=== PATIENT | female | born 1945 | race Caucasian/White ===

== ENCOUNTER → 2016-12-13 | Outpatient (CLI) | payer MEDICARE ==
[2016-12-13 12:13] LABS: LYMPH # 1.7 K/mm3 (0.7-4.5); LYMPH % 28.6 % (10-50.0)
[2016-12-13 12:41] LABS: HEMOGLOBIN 15.3 g/dL (12.2-16.2)
[2016-12-13 12:49] LABS: BUN 22 mg/dL (7-18)
[2016-12-13 12:59] LABS: GFR (ESTIMATED) 82 ML/MIN (59-)
[2016-12-14 19:28] LABS: Vitamin D, 25-Hydroxy 34.2 ng/mL (30.0-100.0)
== END ==
LOC: LAB 11:11
PROVIDERS: Physician Assistant
DX: I10 Essential (primary) hypertension (principal); E55.9 Vitamin D deficiency, unspecified; Z13.29 Encounter for screening for other suspected endocrine disorder; Z86.2 Personal history of diseases of the blood and blood-forming organs and certain disorders involving the immune mechanism; Z13.220 Encounter for screening for lipoid disorders